=== PATIENT | male | born 1955 | race Caucasian/White ===

== ENCOUNTER 2025-05-01 06:08 | Day surgery (SDC) | payer OTHER, SELFPAY ==
[2025-05-01] VITALS (12 sets, daily range): BP systolic 100–121; BP diastolic 58–90; BMI 21.8
[2025-05-01 06:58] LABS: Hematocrit 58.2 % (39.0-52.0); Hemoglobin 18.6 g/dL (13.0-18.0); Mean Corp Hgb Conc. 32.0 g/dL (33.0-37.0); Mean Corpuscular Volume 98.6 fL (80.0-94.0); Platelet Count 206 10^3/uL (130-400); Red Cell Dist. Width 14.2 % (11.5-14.5)
[2025-05-01] MEDS: LOW STRENGTH ASPIRIN 324 MG PO (07:21)
[2025-05-01] MEDS: NSS 198 ML IV (07:24)
--- NOTE | 2025-05-01 09:57 | ITS.CL.CATH ---
[facility] - [facility]terization
Cardiac Catheterization
Procedure Report:
RIGHT AND LEFT HEART CATHETERIZATION
Date of Procedure: May 01, 2025
Primary Care Physician: Dr. Dionna Croft
Primary [employer] F[employer] Tool Operator: Dr. Mariajose Dietz
Procedures performed:
1: Coronary angiography
2: Left ventricular hemodynamic assessment
3: Right heart catheterization
INDICATION: The patient is a 69-year-old man with a past medical history for oxygen dependent COPD with ongoing pack-a-day smoking, hyperlipidemia and coronary artery calcifications on chest CT who is referred for diagnostic right and left heart
catheterization in light of new LV systolic dysfunction noted on echocardiography performed at an outside facility on April 02. He has no typical angina. He wears oxygen at night but not during the day. On arrival his oxygen saturation was 84%
on room air. He was noted to have significant polycythemia on his preprocedure labs with a hemoglobin of 17.8 g/dL.
ACCESS: The patient was prepped and draped in usual sterile fashion. A 6 Bahamian sheath was placed in the right radial artery using the Seldinger over the wire technique. A 5 Bahamian sheath was then placed in the right brachial using the same
technique.
HEMODYNAMIC FINDINGS (mmHg):
RA(a,v,m): 11, 8, 8
RV(s/d,EDP): 47/7, 10
PA(s/d/m): 49/22, 32
PCWP(a,v,m): 1414, 12
LV(s/d,EDP): 109/10, 11
Ao(s/d,m): 109/65, 82
Oxygen Saturations (mg/dl):
PA: 70% of 4 liters of O2 by nasal cannula
LV: 90% of 4 liters of O2 by nasal cannula
Cardiac Output/Index (l/min / l/min/m2):
Estimated Praveen Method: 4.4 / 2.4
Transpulmonary gradient (mmHg): 20
PVR (Mejia units): 4.6
VALVE HEMODYNAMICS:
No significant aortic or mitral valve stenosis.
ANGIOGRAPHIC FINDINGS:
Single-plane Left Ventriculography in WEEKS Projection: Not done. LVEF by echo on April 02, 2025 was reported as 35-40% with a dilated and hypokinetic right ventricle.
Coronary Angiography:
Dominance: Right
Left Main: Large caliber and widely patent.
Left Anterior Descending: The left anterior descending artery is a relatively large caliber vessel that gives rise to 1 major diagonal branch there is a second smaller distal diagonal branch. All vessels are widely patent with diffuse moderate
luminal irregularities and no focal obstructive disease. All vessels have normal distal flow.
Left Circumflex: The left circumflex is a relatively large nondominant system that gives rise to 2 major obtuse marginal branches. These vessels have mild nonobstructive disease with normal distal flow in all vessels.
Right Coronary: The right coronary artery has a very high and vertical takeoff from the aorta. This was engaged using a 6 Bahamian multipurpose catheter. The right coronary artery has diffuse luminal irregularities throughout with at worst a smooth
40% stenosis at the RV margin followed by tandem distal smooth 30% stenoses the posterior descending artery is a medium caliber vessel that has a smooth mid 40-50% stenosis. There is a relatively small distal PLV system that is widely patent with 2
small branches. All vessels have normal distal flow.
Fluoroscopy Time (min): 9.6
Radiation Dose (mGy): 448
DAP (Gy.cm2): 38
Closure device: None. A TR band was applied for hemostasis at the right wrist. The femoral vein groin sheath will be pulled with manual pressure for hemostasis.
Complications: None.
ASSESSMENT:
1: Nonobstructive coronary artery disease with diffuse luminal irregularities throughout.
2: Moderately elevated pulmonary pressures with elevated pulmonary vascular resistance. This is clearly related to his ongoing smoking and chronic hypoxia.
3: Significant hypoxia at rest.
4: Well compensated left ventricular filling pressures.
CONCLUSIONS and RECOMMENDATIONS:
1: Medical therapy for nonobstructive coronary artery disease.
2: Medical therapy for cardiomyopathy with close clinical follow-up and uptitration of goal-directed medical therapy.
3: Close pulmonary follow-up for significant oxygen dependent COPD. He clearly needs oxygen to keep his resting sats above 88%. This certainly may be playing a role in his evolving cardiomyopathy.
4: Smoking cessation is obviously critical and the most important intervention to reduce his morbidity and mortality from cardiopulmonary events.
Ron Neumann M.D.
== END 2025-05-01 11:30 | disposition home or self-care (01) ==
LOC: CATH 06:08
PROVIDERS: Internal Medicine Interventional Cardiology; ATTENDING PHYSICIAN Student in an Organized Health Care Education/Training Program
DX: I25.10 Atherosclerotic heart disease of native coronary artery without angina pectoris (principal); I42.9 Cardiomyopathy, unspecified; E78.5 Hyperlipidemia, unspecified; J44.9 Chronic obstructive pulmonary disease, unspecified; Z99.81 Dependence on supplemental oxygen; D75.1 Secondary polycythemia; R09.02 Hypoxemia; F17.210 Nicotine dependence, cigarettes, uncomplicated
CPT/HCPCS: 85027; 93460; C1769; C1894; Q9967